=== PATIENT | male | born 1940 | race Caucasian/White ===

== ENCOUNTER 2018-07-10 07:38 | Outpatient (CLI) | payer MEDICARE ==
[~2018-07-10] VITALS: Ht 175.3 cm; Wt 72.7 kg
[~2018-07-10 07:38] MED LIST: BAYER CHEWABLE81 MG PO; BENICAR20 MG PO; CLARITIN 10 MG10 MG PO; DILAUDID4 MG PO; DILAUDID8 MG PO; EC-NAPROSYN500 MG PO; FISH OIL 1,0001 CA1 PO; HYDROCODONE-APA1 TAB PO; MULTI-DAY VITAM1 TAB PO; RED YEAST RICE600 MG PO; ZOCOR40 MG PO
[2018-07-10 08:05] LABS: BASOPHILS 0.2 % (0-2); EOSINOPHILS 4.4 % (0-7); HEMATOCRIT 41.8 % (42.0-54.0); HEMOGLOBIN 14.2 g/dL (13.5-17.5); LYMPHOCYTES 26.2 % (15-50); MCH 29.4 pg (26.0-34.0); MCV 86.5 fL (80.0-100.0); NEUTROPHILS 61.2 % (40-80); RBC 4.83 10x6/uL (4.20-6.10); RDW 13.3 % (11.5-14.5); WBC 4.1 10x3/uL (4.8-10.8)
[2018-07-10 08:15] LABS: ANION GAP 11.2 mmol/L (8-16); APTT 27.2 SECONDS (22.8-39.4); CARBON DIOXIDE 31.4 mmol/L (21.0-32.0); CREATININE - SERUM 1.1 mg/dL (0.6-1.3); INR 1.07 (0.85-1.17); POTASSIUM - SERUM 4.6 mmol/L (3.5-5.1); PROTIME 13.4 SECONDS (11.6-15.0)
[2018-07-10 08:22] LABS: PLATELET COUNT 192 10x3/uL (130-400)
[2018-07-10] MEDS ORDERED: PROTONIX40 MG PO (08:30)
[2018-07-10 08:44] VITALS: BP 128/82; Ht 175.3 cm; Wt 72.7 kg
[2018-07-11 16:14] LABS: ACID FAST SMEAR Negative (()); AFB SPECIMEN PROCESSING Concentration (())
== END 2018-07-10 15:20 | disposition home or self-care (01) ==
LOC: D.SP 07:38 → D.CT 10:00 → D.SP 10:00
PROVIDERS: Radiology Vascular & Interventional Radiology
DX: M89.8X8 Other specified disorders of bone, other site (principal); Z01.812 Encounter for preprocedural laboratory examination

== ENCOUNTER → 2018-10-08 16:57 | Outpatient (CLI) | payer MEDICARE ==
[~2018-10-08 16:57] MED LIST changes: +PROTONIX40 MG PO
[2018-10-08 17:13] LABS: BASOPHILS 0.6 % (0-2); EOSINOPHILS 2.2 % (0-7); HEMATOCRIT 45.7 % (42.0-54.0); HEMOGLOBIN 15.5 g/dL (13.5-17.5); IMMATURE GRANULOCYTES 0.3 % (0-5); LYMPHOCYTES 28.4 % (15-50); MCH 29.4 pg (26.0-34.0); MCHC 33.9 g/dL (31.0-37.0); MCV 86.7 fL (80.0-100.0); MEAN PLATELET VOLUME 10.3 fL (7.4-10.4); MONOCYTES 8.6 % (2-11); NEUTROPHILS 59.9 % (40-80); PLATELET COUNT 230 10x3/uL (130-400); RBC 5.27 10x6/uL (4.20-6.10); RDW 13.8 % (11.5-14.5); WBC 3.6 10x3/uL (4.8-10.8)
[2018-10-08 18:47] LABS: ERYTHROCYTE SEDIMENTATION RATE 3 mm/hr (0-20)
== END | disposition home or self-care (01) ==
LOC: D.LABREF 16:57
PROVIDERS: ATTEND Clinical Nurse Specialist Family Health
DX: M25.511 Pain in right shoulder (principal)

== ENCOUNTER → 2018-10-24 09:48 | Outpatient (CLI) | payer MEDICARE | END | disposition home or self-care (01) | LOC: D.NM 09:48 | PROVIDERS: ATTEND Clinical Nurse Specialist Family Health | DX: M25.511 Pain in right shoulder (principal) ==

== ENCOUNTER → 2018-10-29 18:10 | Outpatient (CLI) | payer MEDICARE | END | disposition home or self-care (01) | LOC: D.LABREF 18:10 | PROVIDERS: ATTEND Orthopaedic Surgery | DX: M19.011 Primary osteoarthritis, right shoulder (principal); Z11.8 Encounter for screening for other infectious and parasitic diseases ==